=== PATIENT | male | born 1975 | race Caucasian/White ===

== ENCOUNTER 2021-04-08 20:54 | Emergency (ER) | payer MEDICAID, OTHER ==
[~2021-04-08] VITALS: Ht 170.2 cm; Wt 74.5 kg
[~2021-04-08 20:54] MED LIST: AMOX250C4 PO; MECL-160 PO
[2021-04-08] MEDS ORDERED: ESCI-8 PO (21:06)
[2021-04-08] MEDS ORDERED: PB/HYOSCY/ATR/SCOP/LIDO/MAALOX 55 ML BOTTLE PO ONE (22:15)
[2021-04-08 22:17] LABS: BASOPHILS % (AUTO) 0.3 % (0.0-2.0); EOSINOPHILS % (AUTO) 1.9 % (1.0-6.0); HEMATOCRIT 44.4 % (41-53); HEMOGLOBIN 14.7 g/dL (13.5-17.5); LYMPHOCYTES # (AUTO) 1.6 K/uL (1.0-4.8); LYMPHOCYTES % (AUTO) 25.1 % (22.0-44.0); MEAN CORPUSCULAR HEMOGLOBIN 27.2 pg (26.0-34.0); MEAN CORPUSCULAR HGB CONC 33.1 G/dL (31.0-37.0); MEAN CORPUSCULAR VOLUME 82 fL (80-100); MONOCYTES # (AUTO) 0.5 K/uL (0.1-1.0); MONOCYTES % (AUTO) 8.4 % (2.0-9.0); NEUTROPHILS # (AUTO) 4.1 K/uL (1.8-7.7); NEUTROPHILS % (AUTO) 64.3 % (40.0-70.0); PLATELET COUNT (AUTO) 179 K/uL (150-450); RED BLOOD CELL COUNT(AUTO) 5.41 MIL/uL (4.50-5.90); RED CELL DISTRIBUTION WIDTH 13.3 % (11.5-14.5)
[2021-04-08 22:26] LABS: ANION GAP 10 mmol/L (8-16); CALCIUM, TOTAL 8.7 mg/dL (8.8-10.5); CARBON DIOXIDE 29 mmol/L (22-29); CHLORIDE 103 mmol/L (98-107); CREATININE 0.78 mg/dL (0.60-1.30); GLOMERULAR FILTR. RATE CALC > 60 mL/min (>60); GLUCOSE,RANDOM 109 mg/dL (70-110); POTASSIUM 3.4 mmol/L (3.5-5.1); SODIUM SERUM 142 mmol/L (136-145); UREA NITROGEN, BLOOD 17 mg/dL (7-18)
[2021-04-08 22:30] VITALS: BP 129/83
[2021-04-08 22:32] LABS: ALANINE AMINOTRANSFERASE 39 U/L (12-78); ALBUMIN 3.8 g/dL (3.4-5.0); ALKALINE PHOSPHATASE 74 U/L (46-116); ASPARTATE AMINOTRANSFERASE 17 U/L (15-37); BILIRUBIN,TOTAL 0.6 mg/dL (0.1-1.0); LIPASE 92 U/L (73-393); TOTAL PROTEIN, SERUM 7.7 g/dL (6.4-8.2)
[2021-04-08 22:34] LABS: INR 1.1 (0.9-1.1); PROTHROMBIN TIME 11.2 SEC (9.4-11.6)
[2021-04-08 22:52] LABS: COVID AG,FIA SOURCE NASOPHARYNGEAL
== END 2021-04-09 00:41 | disposition home or self-care (01) ==
LOC: EMS 20:57
DX: K21.9 Gastro-esophageal reflux disease without esophagitis (principal); Z20.822 Contact with and (suspected) exposure to COVID-19
CPT/HCPCS: 80053; 83690; 85025; 85610; 99283

== ENCOUNTER 2021-06-15 15:38 | Emergency (ER) | payer MEDICAID ==
[~2021-06-15] VITALS: Ht 170.2 cm; Wt 75.5 kg
[~2021-06-15 15:38] MED LIST changes: -AMOX250C4 PO; +ESCI-8 PO; -MECL-160 PO
[2021-06-15 15:58] VITALS: BP 143/83
== END 2021-06-15 20:00 | disposition left against medical advice (07) ==
LOC: EMS 15:48
DX: R10.13 Epigastric pain (principal); Z53.21 Procedure and treatment not carried out due to patient leaving prior to being seen by health care provider

== ENCOUNTER 2021-09-17 12:11 | Emergency (ER) | payer MEDICAID ==
[~2021-09-17] VITALS: Ht 172.7 cm; Wt 68.2 kg
[2021-09-17 12:54] VITALS: BP 133/86
== END 2021-09-17 17:04 | disposition home or self-care (01) ==
LOC: EMS 12:42
DX: U07.1 COVID-19 (principal); R10.13 Epigastric pain; K21.9 Gastro-esophageal reflux disease without esophagitis; Z79.899 Other long term (current) drug therapy
CPT/HCPCS: 99283; Z7502